=== PATIENT | male | born 1970 | race Caucasian/White ===

== ENCOUNTER → 2019-07-06 | Outpatient (CLI) | payer MEDICARE ==
[2019-07-06 13:15] LABS: BASO # 0.1 10^3/uL (0.0-0.2); HEMATOCRIT 40.7 % (42.0-52.0); HEMOGLOBIN 12.6 g/dl (13.5-17.5); LYMPH # 0.7 10^3/uL (1.5-5.0); LYMPH % 13.4 % (24.0-44.0); MEAN CORPUSCULAR VOLUME 84.1 fl (80.0-96.0); MONO # 0.4 10^3/uL (0.0-0.8); MONO % 8.2 % (0.0-5.0); NEUTROPHILS % 77.2 % (36.0-66.0); PLATELET COUNT, AUTOMATED 289 10^3/uL (150-450); RED BLOOD COUNT 4.84 10^6/uL (4.30-6.10); WHITE BLOOD COUNT 5.2 10^3/uL (4.0-10.0)
[2019-07-06 13:48] LABS: ALBUMIN 4.1 GM/DL (3.2-5.2); ALT/SGPT 27 U/L (12-78); BILIRUBIN,TOTAL 0.3 MG/DL (0.2-1.0); BLOOD UREA NITROGEN 11 MG/DL (7-18); CALCIUM LEVEL 8.3 MG/DL (8.5-10.1); CARBON DIOXIDE LEVEL 23 MEQ/L (21-32); CHLORIDE LEVEL 105 MEQ/L (98-107); CREATININE FOR GFR 1.13 MG/DL (0.70-1.30); GLOMERULAR FILTRATION RATE > 60.0 (>60); GLUCOSE, FASTING 90 MG/DL (70-100); LIPASE 58 U/L (73-393); POTASSIUM SERUM 4.4 MEQ/L (3.5-5.1); SODIUM LEVEL 138 MEQ/L (136-145); TOTAL PROTEIN 7.3 GM/DL (6.4-8.2)
== END ==
LOC: M WUC 10:39
PROVIDERS: ATTEND Physician Assistant
DX: R10.9 Unspecified abdominal pain (principal)

== ENCOUNTER 2021-08-05 12:45 | Emergency (ER) | payer MEDICARE, MEDICAID ==
[~2021-08-05] VITALS: Ht 177.8 cm; Wt 111.4 kg
[2021-08-05 13:01] VITALS: BP 140/92
[2021-08-05] MEDS ORDERED: FLUO20CA22 (13:08)
[2021-08-05] MEDS ORDERED: CLON0.5T2 (13:08)
[2021-08-05] MEDS ORDERED: FLUO40CA (13:08)
[2021-08-05] MEDS ORDERED: PRAZ5CAP (13:08)
[2021-08-05] MEDS ORDERED: SERO1TAB2 (13:08)
[2021-08-05] MEDS ORDERED: KLON1TAB (13:08)
== END 2021-08-05 15:55 | disposition home or self-care (01) ==
LOC: M ED 12:45
DX: S09.90XA Unspecified injury of head, initial encounter (principal); W00.9XXA Unspecified fall due to ice and snow, initial encounter; Y92.9 Unspecified place or not applicable; Y93.9 Activity, unspecified; Y99.9 Unspecified external cause status; H53.8 Other visual disturbances

== ENCOUNTER 2021-11-08 21:22 | Inpatient (IN) | payer MEDICARE, MEDICAID ==
[~2021-11-08] VITALS: Ht 177.8 cm; Wt 113.6 kg
[~2021-11-08 21:22] MED LIST: CLON0.5T2; FLUO20CA22; FLUO40CA; KLON1TAB; PRAZ5CAP; SERO1TAB2
[2021-11-08] MEDS ORDERED: TRAZ-252 PO (22:22)
[2021-11-08 23:04] LABS: HEMATOCRIT 33.5 % (42.0-52.0); HEMOGLOBIN 10.1 g/dl (13.5-17.5); MEAN CORPUSCULAR HEMOGLOBIN 22.7 pg (27.0-33.0); MEAN CORPUSCULAR HGB CONC 30.1 g/dl (32.0-36.5); MEAN CORPUSCULAR VOLUME 75.3 fl (80.0-96.0); PLATELET COUNT, AUTOMATED 303 10^3/uL (150-450); RED BLOOD COUNT 4.45 10^6/uL (4.30-6.10); WHITE BLOOD COUNT 6.6 10^3/uL (4.0-10.0)
[2021-11-08 23:50] LABS: ACETAMINOPHEN LEVEL 2.1 UG/ML (10.0-30.0); ALBUMIN 3.3 GM/DL (3.2-5.2); ALT/SGPT 16 U/L (12-78); BILIRUBIN,DIRECT 0.1 MG/DL (0.0-0.2); BILIRUBIN,TOTAL 0.3 MG/DL (0.2-1.0); BLOOD UREA NITROGEN 15 MG/DL (7-18); CALCIUM LEVEL 8.3 MG/DL (8.5-10.1); CARBON DIOXIDE LEVEL 25 MEQ/L (21-32); CHLORIDE LEVEL 109 MEQ/L (98-107); ETHYL ALCOHOL (ETHANOL) < 0.003 % (0.000-0.010); GLOMERULAR FILTRATION RATE > 60.0 (>56); GLUCOSE, FASTING 95 MG/DL (70-100); POTASSIUM SERUM 4.1 MEQ/L (3.5-5.1); SALICYLATE LEVEL < 1.7 MG/DL (5.0-30.0); SODIUM LEVEL 142 MEQ/L (136-145); TOTAL PROTEIN 6.5 GM/DL (6.4-8.2)
[2021-11-09 01:24] LABS: AMPHETAMINES LEVEL URINE NEGATIVE (NEGATIVE); BARBITURATES URINE NEGATIVE (NEGATIVE); BENZODIAZEPINES URINE NEGATIVE (NEGATIVE); CANNABINOIDS URINE POSITIVE (NEGATIVE); COCAINE METABOLITE URINE NEGATIVE (NEGATIVE); METHADONE URINE NEGATIVE (NEGATIVE); OPIATES URINE NEGATIVE (NEGATIVE); PHENCYCLIDINE URINE NEGATIVE (NEGATIVE)
[2021-11-09 01:31] LABS: RSV AMPLIFICATION NEGATIVE (NEGATIVE)
[2021-11-09] MEDS ORDERED: PRAZ2CAP PO (05:43)
[2021-11-09] MEDS ORDERED: FLUO40CA PO (05:43)
[2021-11-09] MEDS ORDERED: CLON0.5T2 PO (05:43)
[2021-11-09] MEDS ORDERED: TRAZ-252 PO (05:43)
[2021-11-09] MEDS ORDERED: PRAZ5CAP PO (05:43)
[2021-11-09] MEDS ORDERED: QUET300T2 PO (05:43)
[2021-11-09] MEDS ORDERED: FLUO-96 PO (05:43)
[2021-11-09] MEDS ORDERED: CLON1TAB8 PO (05:43)
[2021-11-09] MEDS ORDERED: HOME MED LIST COMPLETE! XX SCH (05:45)
[2021-11-09] MEDS ORDERED: QUEtiapine FUMARATE 100 MG TAB PO SCH (09:00)
[2021-11-09] MEDS ORDERED: FLUoxetine 20MG CAP PO SCH (12:00)
[2021-11-09] MEDS ORDERED: clonazePAM 0.5 MG TAB PO SCH (12:00)
[2021-11-09] MEDS: FLUoxetine 20MG CAP PO SCH (12:50)
[2021-11-09] MEDS: clonazePAM 0.5 MG TAB PO SCH (12:51)
[2021-11-09] MEDS: QUEtiapine FUMARATE 100 MG TAB PO SCH (20:39)
[2021-11-09] MEDS: traZODone 100 MG TAB PO SCH (20:39)
[2021-11-09] MEDS: PRAZOSIN 1 MG CAP PO SCH (20:40)
[2021-11-09] MEDS: clonazePAM 1 MG TAB PO SCH (20:40)
[2021-11-10] MEDS ORDERED: HALOPERIDOL 5MG/ML VIAL (J1630 PER 1) IM ONE (11:05)
[2021-11-10] MEDS ORDERED: LORazepam 2 MG/ML VIAL IM ONE (11:05)
[2021-11-10] MEDS ORDERED: diphenhydrAMINE 50MG/ML VIAL (J1200) IM ONE (11:05)
[2021-11-10] MEDS: FLUoxetine 20MG CAP PO SCH (11:43)
[2021-11-10] MEDS: clonazePAM 0.5 MG TAB PO SCH (11:43)
[2021-11-10] MEDS: clonazePAM 1 MG TAB PO SCH (21:00)
[2021-11-10] MEDS: traZODone 100 MG TAB PO SCH (21:00)
[2021-11-10] MEDS: QUEtiapine FUMARATE 100 MG TAB PO SCH (21:02)
[2021-11-10] MEDS: PRAZOSIN 1 MG CAP PO SCH (21:02)
[2021-11-11] MEDS: clonazePAM 0.5 MG TAB PO SCH (12:00)
[2021-11-11] MEDS: FLUoxetine 20MG CAP PO SCH (12:00)
[2021-11-11] MEDS: clonazePAM 1 MG TAB PO SCH (21:03)
[2021-11-11] MEDS: traZODone 100 MG TAB PO SCH (21:03)
[2021-11-11] MEDS: QUEtiapine FUMARATE 100 MG TAB PO SCH (21:04)
[2021-11-11] MEDS: PRAZOSIN 1 MG CAP PO SCH (21:04)
[2021-11-12] MEDS: FLUoxetine 20MG CAP PO SCH (11:54)
[2021-11-12] MEDS: clonazePAM 0.5 MG TAB PO SCH (11:54)
[2021-11-12] MEDS: QUEtiapine FUMARATE 100 MG TAB PO SCH (21:18)
[2021-11-12] MEDS: clonazePAM 1 MG TAB PO SCH (21:20)
[2021-11-12] MEDS: traZODone 100 MG TAB PO SCH (21:20)
[2021-11-12] MEDS: PRAZOSIN 1 MG CAP PO SCH (21:21)
[2021-11-13] MEDS: NICOTINE 21MG/24HR 1 EA TRANSDERMAL TD SCH (09:00)
[2021-11-13] MEDS ORDERED: clonazePAM 0.5 MG TAB PO SCH (12:00)
[2021-11-13] MEDS ORDERED: FLUoxetine 20MG CAP PO SCH ×2 (12:00)
[2021-11-13] MEDS ORDERED: diphenhydrAMINE 25MG CAP PO PRN (12:10)
[2021-11-13] MEDS ORDERED: MAALOX 30 ML SUSP *UDC PO PRN (12:10)
[2021-11-13] MEDS ORDERED: traZODone 50 MG TAB PO PRN (12:10)
[2021-11-13] MEDS: FLUoxetine 20MG CAP PO SCH (12:20)
[2021-11-13] MEDS: clonazePAM 0.5 MG TAB PO SCH (12:20)
[2021-11-13 20:06] VITALS: BP 141/93
[2021-11-13] MEDS ORDERED: PRAZOSIN 1 MG CAP PO SCH (21:00)
[2021-11-13] MEDS: QUEtiapine FUMARATE 100 MG TAB PO SCH (21:24)
[2021-11-13] MEDS: clonazePAM 1 MG TAB PO SCH (21:24)
[2021-11-13] MEDS: traZODone 50 MG TAB PO SCH (21:25)
[2021-11-13] MEDS: PRAZOSIN 1 MG CAP PO SCH (21:28)
[2021-11-14 06:30] VITALS: BP 106/57
[2021-11-14] MEDS: NICOTINE 21MG/24HR 1 EA TRANSDERMAL TD SCH (09:00)
[2021-11-14] MEDS ORDERED: FLUBLOK(EGG FREE)(QUAD)INFLUENZA VACC 0.5ML SYRINGE 18YRS & OLDER IM ONE (09:00)
[2021-11-14] MEDS: FLUoxetine 20MG CAP PO SCH (17:04)
[2021-11-14] MEDS: clonazePAM 0.5 MG TAB PO SCH (17:04)
[2021-11-14 18:00] VITALS: BP 144/79
[2021-11-14 18:08] LABS: PERCENT SATURATION 6.5 % (19.7-50.0)
[2021-11-14] MEDS: QUEtiapine FUMARATE 100 MG TAB PO SCH (20:52)
[2021-11-14] MEDS: traZODone 50 MG TAB PO SCH (20:52)
[2021-11-14 20:53] VITALS: BP 128/83
[2021-11-14] MEDS: PRAZOSIN 1 MG CAP PO SCH (20:53)
[2021-11-14] MEDS: clonazePAM 1 MG TAB PO SCH (20:53)
[2021-11-15 06:26] VITALS: BP 114/63
[2021-11-15] MEDS ORDERED: ACETAMINOPHEN TAB 650MG DOSE (2X325MG) PO PRN (06:55)
[2021-11-15] MEDS: NICOTINE 21MG/24HR 1 EA TRANSDERMAL TD SCH (09:00)
[2021-11-15] MEDS ORDERED: FERROUS SULFATE 325MG TAB PO SCH (09:00)
[2021-11-15] MEDS ORDERED: FERR325T3 PO (09:23)
[2021-11-15 09:42] LABS: CHOLESTEROL RISK RATIO 2.59 (<5)
[2021-11-15] MEDS: clonazePAM 0.5 MG TAB PO SCH (12:26)
[2021-11-15] MEDS: FLUoxetine 20MG CAP PO SCH (12:26)
== END 2021-11-15 12:52 | disposition home or self-care (01) | DRG 882 ==
LOC: M ED 21:22 → M ED INP 11-13 12:08 → M PSY 11-13 12:08
PROVIDERS: ADMIT Psychiatry & Neurology Psychiatry; ATTEND Psychiatry & Neurology Psychiatry
DX: F43.10 Post-traumatic stress disorder, unspecified (principal); R45.851 Suicidal ideations; F41.1 Generalized anxiety disorder; F32.A Depression, unspecified; Z20.822 Contact with and (suspected) exposure to COVID-19; Z98.84 Bariatric surgery status; Z79.899 Other long term (current) drug therapy; D64.9 Anemia, unspecified